=== PATIENT | female | born 1985 | race African-American/Black ===

== ENCOUNTER 2019-03-06 17:33 | Emergency (ER) | payer SELFPAY ==
[~2019-03-06] VITALS: Ht 149.9 cm; Wt 59.4 kg
[2019-03-06 17:58] VITALS: Ht 149.9 cm; Wt 59.4 kg
[2019-03-06 18:38] LABS: CALCIUM 8.7 mg/dL (8.5-10.1); CARBON DIOXIDE 24.7 mmol/L (21-32); CHLORIDE SERUM 104 mmol/L (98-107); CREATININE SERUM 0.8 mg/dL (0.6-1.0); GFR1 > 60 mL/min; GLUCOSE SERUM 86 mg/dL (74-106); POTASSIUM SERUM 3.6 mmol/L (3.5-5.1); SODIUM SERUM 139 mmol/L (136-145)
[2019-03-06 18:42] LABS: BASOPHIL % 0.2 % (0-2); PLATELET COUNT 250 x10^3mcL (130-400); RED CELL DISTRIBUTION WIDTH 14.1 % (11.5-14.5)
[2019-03-06 18:43] LABS: ALBUMIN 3.8 g/dL (3.4-5.0); ALKALINE PHOSPHATASE 70 U/L (46-116); ALT/SGPT 40 U/L (14-59); AST/SGOT 21 U/L (15-37); BILIRUBIN TOTAL 0.4 mg/dL (0.20-1.00); TOTAL PROTEIN, SERUM 8.2 g/dL (6.4-8.2)
[2019-03-06 18:49] LABS: microscopic required? NO
[2019-03-06 18:53] LABS: urine erythrocyte NEGATIVE (NEGATIVE)
[2019-03-06 23:16] VITALS: BP 128/76
== END 2019-03-06 23:16 | disposition home or self-care (01) ==
LOC: ED 17:33
PROVIDERS: Emergency Medicine
DX: N76.0 Acute vaginitis (principal); K62.5 Hemorrhage of anus and rectum; R03.0 Elevated blood-pressure reading, without diagnosis of hypertension
CPT/HCPCS: 36415; 87491; 87591; J1885